=== PATIENT | male | born 1960 | race African-American/Black ===

== ENCOUNTER 2019-01-23 10:16 | Inpatient (IN) | payer OTHER ==
[2019-01-23 10:55] VITALS: BMI 34.2
--- NOTE | 2019-01-23 12:47 | HP ---
CIWA Score Nausea/Vomitin Muscle Tremors: 3 Anxiety: 3 Agitation: 3 Paroxysmal Sweats: 1-Minimal Palms Moist Orientation: 0-Oriented Tacttile Disturbances: 1-Very Mild Itch/Numbness Auditory Disturbances: 1-Very Mild Visual Disturbances: 0-None Headache: 2-Mild CIWA-Ar Total Score: 16 - Admission Criteria [facility]ASAS Guidelines: Admission for Medically Managed Detox: Requires at least one of the followin. CIWA greater than 12 2. Seizures within the past 24 hours 3. Delirium tremens within the past 24 hours 4. Hallucinations within the past 24 hours 5. Acute intervention needed for co occurring medical disorder 6. Acute intervention needed for co occurring psychiatric disorder 7. Severe withdrawal that cannot be handled at a lower level of care (continued vomiting, continued diarrhea, abnormal vital signs) requiring intravenous medication and/or fluids 8. Admission ROS S - [facility] Chief Complaint: i need help to stop drinking alcohol,cocaine Allergies/Adverse Reactions: Allergies Allergy/AdvReac Type Severity Reaction Status Date / Time amoxicillin Allergy Severe Difficulty Verified 01/23/19 10:47 Breathing History of Present Illness: this 58 years old male with alcohol and cocaine dependence,seeking detox, withdrawal symptom never been in detox before seen in [place] on sat 01/21/19 for pneumonia on levaquin 500 mgs po daily walking pneumonia type 2 dm since bilateral cataract surgery both eyes 2018 positive ppd bipolar disorder on med history of back surgery 2014 [facility] ambulation with cane bilateral knee replacement 2012.2018 right shoulder 2016 nicotine dependence 5 cigarette/day,does not need nicotine replacement lap gastric by pass 2010 asthma for detox plan to go to rehab - Ebola screening Have you traveled outside of the country in the last 21 days: No Have you had contact with anyone from an Ebola affected area: No Do you have a fever: No - Review of Systems Constitutional: Loss of Appetite, Malaise, Night Sweats, Changes in sleep, Weakness, Unintentional Wgt. Loss EENT: reports: Nose Congestion, Other (bilateral cataract surgery in 2018) Respiratory: reports: Productive cough, Other (asthma pneumonia left on levaquin 500 mgs po daily sine 01/21/19) Cardiac: reports: No Symptoms Reported GI: reports: Nausea, Poor Appetite, Abdominal cramping (history of lap gastric by pass) : reports: No Symptoms Reported Musculoskeletal: reports: Back Pain, Muscle Pain, Other (history of back sugery in 2014 history of bilearal knee replacement in 2011,2017) Integumentary: reports: Dryness Neuro: reports: Headache, Tremors Endocrine: reports: No Symptoms Reported, Other (type 2 dm) Hematology: reports: No Symptoms Reported Psychiatric: reports: No Sypmtoms Reported, Judgement Intact, Mood/Affect Appropiate, Orientated x3, other (bipolar disorder) Other Systems: Reviewed and Negative (ambulation with cane) Patient History - Patient Medical History Hx Anemia: No ( gastric bypass and not compliant with the suplemental vit B 12 ) Hx Asthma: Yes (on albuterol inhaler) Hx Chronic Obstructive Pulmonary Disease (COPD): No Hx Cancer: No Hx Cardiac Disorders: No Hx Congestive Heart Failure: No Hx Hypertension: Yes (on medication) Hx Hypercholesterolemia: No Hx Pacemaker: No HX Cerebrovascular Accident: No Hx Seizures: No Hx Dementia: No Hx Diabetes: Yes (no med) Hx Gastrointestinal Disorders: No (Gastric By pass) Hx Liver Disease: No Hx Genitourinary Disorders: No Hx Sexually Transmitted Disorders: No Hx Renal Disease (ESRD): No Hx Thyroid Disease: No Hx Human Immunodeficiency Virus (HIV): No (last 07/14 negative) Hx Hepatitis C: No Hx Depression: Yes Hx Suicide Attempt: No Hx Bipolar Disorder: Yes Hx Schizophrenia: No Other Medical History: no sucidal,no homicidal - Patient Surgical History Past Surgical History: Yes Hx Neurologic Surgery: No Hx Cataract Extraction: No Hx Cardiac Surgery: No Hx Lung Surgery: No Hx Breast Surgery: No Hx Breast Biopsy: No Hx Abdominal Surgery: Yes (Gastric Bypass 2010) Hx Appendectomy: No Hx Cholecystectomy: No Hx Genitourinary Surgery: No Hx Section: Yes (Lt Knee replacement, shoulder) Hx Orthopedic Surgery: No Other Surgical History: right sholder surgery,back surgry Anesthesia Reaction: No - PPD History Documented Results: Positive w/o proof Implanted On Prior [facility] Admission?: No PPD to be Administered?: No - Smoking Cessation Smoking history: Current every day smoker Have you smoked in the past 12 months: Yes Aproximately how many cigarettes per day: 0 Hx Chewing Tobacco Use: No Initiated information on smoking cessation: Yes 'Breaking Loose' booklet given: 01/23/19 - Substance & Tx. History Hx Alcohol Use: Yes Hx Substance Use: Yes Substance Use Type: Alcohol, Cocaine Hx Substance Use Treatment: Yes (rehab 05/02/15 to 05/17/15) - Substances abused Alcohol Substance route: Oral Frequency: Daily Amount used: 1 pt. jin Age of first use: 5 Date of last use: 01/22/19 Cocaine Substance route: Smoking Frequency: Daily Amount used: $50 Age of first use: 12 Date of last use: 01/22/19 Family Disease History - Family Disease History Family Disease History: Heart Disease: Sister, Respiratory: Sister Admission Physical Exam [facility] - Vital Signs Vital Signs: Vital Signs - 24 hr 01/23/19 10:50 Temperature 98.4 F Pulse Rate 73 Respiratory 18 Rate Blood Pressure 163/104 H - Physical General Appearance: Yes: Moderate Distress, Tremorous, Irritable, Sweating, Anxious HEENTM: Yes: Normocephalic, LUKE, Pharynx Normal, Other (s/p cataract sugery both) Respiratory: Yes: Lungs Clear, Normal Breath Sounds, No Respiratory Distress Neck: Yes: Within Normal Limits, Supple, Trachea in good position Breast: Yes: Within Normal Limits Cardiology: Yes: Within Normal Limits, Regular Rhythm, Regular Rate, S1, S2 Abdominal: Yes: Within Normal Limits, Normal Bowel Sounds, Flat, Soft, Surgical Scar Genitourinary: Yes: Within Normal Limits Back: Yes: Muscle Spasm Musculoskeletal: Yes: Other (scar right shoulder) Extremities: Yes: Within Normal Limits, Normal Range of Motion, Tremors, Other ( scar both knees) Neurological: Yes: courtroom reporter II-XII NML intact, Alert, Motor Strength 5/5 Integumentary: Yes: Dry Lymphatic: Yes: Within Normal Limits - Diagnostic (1) Alcohol dependence with uncomplicated withdrawal Current Visit: Yes Status: Acute (2) Cocaine dependence Current Visit: Yes Status: Acute (3) DM2 (diabetes mellitus, type 2) Current Visit: Yes Status: Acute (4) Nicotine dependence Current Visit: Yes Status: Acute (5) History of gastric bypass Current Visit: No Status: Chronic (6) Hypertension Current Visit: No Status: Chronic (7) Low back pain Current Visit: No Status: Chronic (8) History of back surgery Current Visit: Yes Status: Acute (9) History of back injury Current Visit: Yes Status: Acute (10) History of knee replacement Current Visit: Yes Status: Acute (11) Obesity Current Visit: No Status: Acute (12) Neuropathy Current Visit: Yes Status: Acute Cleared for Admission [facility] - Detox or Rehab S Level of Care: Medically Managed Detox Regimen/Protocol: Librium Breathalyzer - Breathalyzer Breathalyzer: 0 Urine Drug Screen - Test Device Lot number: [id number] Expiration date: 08/26/20 - Control Is test valid?: Yes - Results Drug screen NEGATIVE: No Urine drug screen results: THC-Marijuana, TITUS-Cocaine Inpatient Rehab Admission - Rehab Decision to Admit Inpatient rehab admission?: No
[2019-01-23] MEDS ORDERED: METHOCARBAMOL 500 MG TABLET PO PRN (13:06)
[2019-01-23] MEDS ORDERED: chlordiazePOXIDE HCL 25 MG CAPSULE PO PRN (13:06)
[2019-01-23] MEDS ORDERED: MAG HYDROX/AL HYDROX/SIMETH 30 ML UNIT-DOSE CUP PO PRN (13:06)
[2019-01-23] MEDS ORDERED: MAGNESIUM CITRATE 300 ML BOTTLE PO PRN (13:06)
[2019-01-23] MEDS ORDERED: MAGNESIUM HYDROX 2400MG/30ML ORAL SUSPENSION 30 ML CUP PO PRN (13:06)
[2019-01-23] MEDS ORDERED: IBUPROFEN 400 MG TABLET (FP) PO PRN (13:06)
[2019-01-23] MEDS ORDERED: MENTHOL/PHENOL 1 EACH UD MM PRN (13:06)
[2019-01-23] MEDS ORDERED: BISMUTH SUBSALICYLATE 524 MG/30 ML UD PO PRN (13:06)
[2019-01-23] MEDS ORDERED: amLODIPine BESYLATE 10 MG TABLET (FP) PO ONE (14:00)
[2019-01-23 16:17] LABS: HEMATOCRIT 36.3 % (35.4-49); HEMOGLOBIN 11.9 GM/dL (11.7-16.9); MCH 27.4 pg (25.7-33.7); MCHC 32.7 g/dl (32.0-35.9); MEAN CELL VOLUME 83.8 fl (80-96); MEAN PLT VOLUME 8.5 fl (7.5-11.1); PLATELET COUNT 325 K/MM3 (134-434); RBC 4.33 M/mm3 (4.00-5.60); RDW 19.5 % (11.9-15.9); WHITE BLOOD COUNT 5.4 K/mm3 (4.0-10.0)
[2019-01-23 16:18] LABS: PH,URINE 6.5 (5.0-8.0); URINE APPEARANCE CLEAR; URINE BILIRUBIN NEGATIVE (NEGATIVE); URINE COLOR YELLOW; URINE GLUCOSE (UA) NEGATIVE (NEGATIVE); URINE KETONE TRACE (NEGATIVE); URINE LEUK ESTERASE NEGATIVE (NEGATIVE); URINE NITRITE NEGATIVE (NEGATIVE); URINE PROTEIN NEGATIVE (NEGATIVE)
[2019-01-23 16:22] LABS: ALBUMIN 3.1 g/dl (3.4-5.0); ALK PHOS 92 U/L (45-117); ANION GAP 4 MMOL/L (8-16); BILIRUBIN,TOTAL 0.2 mg/dL (0.2-1); BLOOD UREA NITROGEN 10 mg/dL (7-18); CALCIUM 8.9 mg/dL (8.5-10.1); CHLORIDE 105 mmol/L (98-107); CO2 30 mmol/L (21-32); GLUCOSE,RANDOM 159 mg/dL (74-106); POTASSIUM 3.6 mmol/L (3.5-5.1); SGOT/AST 11 U/L (15-37); SGPT/ALT 17 U/L (13-61); SODIUM 139 mmol/L (136-145); TOT PROT 7.3 g/dl (6.4-8.2)
[2019-01-23] MEDS: chlordiazePOXIDE HCL 25 MG CAPSULE PO SCH ×2 (18:19→23:07)
[2019-01-23] MEDS: THIAMINE HCL 100 MG TABLET (FP) PO SCH (23:06)
[2019-01-23] MEDS: hydrOXYzine PAMOATE 25 MG CAPSULE (FP) PO PRN (23:06)
[2019-01-23] MEDS: MELATONIN 5 MG TABLETS PO PRN (23:07)
[2019-01-24] MEDS: chlordiazePOXIDE HCL 25 MG CAPSULE PO SCH ×4 (05:52→22:37)
[2019-01-24] MEDS: LEVOFLOXACIN 250 MG PO SCH (06:27)
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
[2019-01-24] MEDS: PRENATAL VITAMINS W/ FOLIC ACID TABLET (FP) PO SCH (11:39)
[2019-01-24] MEDS: amLODIPine BESYLATE 10 MG TABLET (FP) PO SCH (11:39)
[2019-01-24] MEDS: hydrOXYzine PAMOATE 25 MG CAPSULE (FP) PO PRN (11:40)
--- NOTE | 2019-01-24 14:13 | PN ---
S CIWA - CIWA Score Nausea/Vomitin Muscle Tremors: 2 Anxiety: 3 Agitation: 1-Slight > Activity Paroxysmal Sweats: No Perspiration Orientation: 0-Oriented Tacttile Disturbances: 0-None Auditory Disturbances: 3-Moderate Harsh/Frighten Visual Disturbances: 2-Mild Sensitivity Headache: 0-None Present CIWA-Ar Total Score: 13 [facility] Progress Note (SOAP) Subjective: Anxious, Tremors, Nausea, Diarrhea. Objective: PATIENT A & O X 3, OBSERVED AMBULATING ON UNIT UNASSISTED WITH ASSISTANCE OF A CANE. IN NO ACUTE DISTRESS. 01/24/19 14:11 Vital Signs Temperature 98.1 F 01/24/19 13:20 Pulse Rate 92 H 01/24/19 13:20 Respiratory Rate 18 01/24/19 13:20 Blood Pressure 164/79 01/24/19 13:20 O2 Sat by Pulse Oximetry (%) Laboratory Tests 01/23/19 01/23/19 01/23/19 12:41 12:41 12:41 WBC 5.4 RBC 4.33 Hgb 11.9 Hct 36.3 MCV 83.8 MCH 27.4 MCHC 32.7 RDW 19.5 H Plt Count 325 D MPV 8.5 Sodium 139 Potassium 3.6 Chloride 105 Carbon Dioxide 30 Anion Gap 4 L BUN 10 Creatinine 1.0 Creat Clearance w eGFR 76.48 POC Glucometer Random Glucose 159 H Calcium 8.9 Total Bilirubin 0.2 AST 11 L ALT 17 Alkaline Phosphatase 92 Total Protein 7.3 Albumin 3.1 L Urine Color Urine Appearance Urine pH Ur Specific [place] Urine Protein Urine Glucose (UA) Urine Ketones Urine Blood Urine Nitrite Urine Bilirubin Urine Urobilinogen Ur Leukocyte Esterase RPR Titer Nonreactive 01/23/19 01/23/19 01/24/19 14:50 16:40 05:56 WBC RBC Hgb Hct MCV MCH MCHC RDW Plt Count MPV Sodium Potassium Chloride Carbon Dioxide Anion Gap BUN Creatinine Creat Clearance w eGFR POC Glucometer 123 179 Random Glucose Calcium Total Bilirubin AST ALT Alkaline Phosphatase Total Protein Albumin Urine Color Yellow Urine Appearance Clear Urine pH 6.5 D Ur Specific [place] 1.025 Urine Protein Negative Urine Glucose (UA) Negative Urine Ketones Trace H Urine Blood Negative Urine Nitrite Negative Urine Bilirubin Negative Urine Urobilinogen 1.0 Ur Leukocyte Esterase Negative RPR Titer LABS NOTED. Assessment: 01/24/19 14:12 WITHDRAWAL SYMPTOMS. HYPERTENSION. Plan: CONTINUE DETOX. INCREASE DAILY PO FLUID INTAKE. PRN PEPTO-BISMOL PO FOR DIARRHEA.
[2019-01-24] MEDS ORDERED: ONDANSETRON *ODT* 4 MG TABLET SL PRN (17:13)
--- NOTE | 2019-01-24 17:20 | PN ---
[facility] Progress Note Note: Vital Signs Temperature 99.9 F H 01/24/19 17:00 Pulse Rate 92 H 01/24/19 17:00 Respiratory Rate 18 01/24/19 17:00 Blood Pressure 119/87 01/24/19 17:00 O2 Sat by Pulse Oximetry (%) Laboratory Last Values WBC 5.4 K/mm3 (4.0-10.0) 01/23/19 12:41 RBC 4.33 M/mm3 (4.00-5.60) 01/23/19 12:41 Hgb 11.9 GM/dL (11.7-16.9) 01/23/19 12:41 Hct 36.3 % (35.4-49) 01/23/19 12:41 MCV 83.8 fl (80-96) 01/23/19 12:41 MCH 27.4 pg (25.7-33.7) 01/23/19 12:41 MCHC 32.7 g/dl (32.0-35.9) 01/23/19 12:41 RDW 19.5 % (11.9-15.9) H 01/23/19 12:41 Plt Count 325 K/MM3 (134-434) D 01/23/19 12:41 MPV 8.5 fl (7.5-11.1) 01/23/19 12:41 Sodium 139 mmol/L (136-145) 01/23/19 12:41 Potassium 3.6 mmol/L (3.5-5.1) 01/23/19 12:41 Chloride 105 mmol/L (98-107) 01/23/19 12:41 Carbon Dioxide 30 mmol/L (21-32) 01/23/19 12:41 Anion Gap 4 MMOL/L (8-16) L 01/23/19 12:41 BUN 10 mg/dL (7-18) 01/23/19 12:41 Creatinine 1.0 mg/dL (0.55-1.3) 01/23/19 12:41 Creat Clearance w eGFR 76.48 (>60) 01/23/19 12:41 POC Glucometer 131 UNITS (80-120) 01/24/19 16:31 Random Glucose 159 mg/dL (74-106) H 01/23/19 12:41 Calcium 8.9 mg/dL (8.5-10.1) 01/23/19 12:41 Total Bilirubin 0.2 mg/dL (0.2-1) 01/23/19 12:41 AST 11 U/L (15-37) L 01/23/19 12:41 ALT 17 U/L (13-61) 01/23/19 12:41 Alkaline Phosphatase 92 U/L (45-117) 01/23/19 12:41 Total Protein 7.3 g/dl (6.4-8.2) 01/23/19 12:41 Albumin 3.1 g/dl (3.4-5.0) L 01/23/19 12:41 Urine Color Yellow 01/23/19 14:50 Urine Appearance Clear 01/23/19 14:50 Urine pH 6.5 (5.0-8.0) D 01/23/19 14:50 Ur Specific [place] 1.025 (1.010-1.035) 01/23/19 14:50 Urine Protein Negative (NEGATIVE) 01/23/19 14:50 Urine Glucose (UA) Negative (NEGATIVE) 01/23/19 14:50 Urine Ketones Trace (NEGATIVE) H 01/23/19 14:50 Urine Blood Negative (NEGATIVE) 01/23/19 14:50 Urine Nitrite Negative (NEGATIVE) 01/23/19 14:50 Urine Bilirubin Negative (NEGATIVE) 01/23/19 14:50 Urine Urobilinogen 1.0 mg/dL (0.2-1.0) 01/23/19 14:50 Ur Leukocyte Esterase Negative (NEGATIVE) 01/23/19 14:50 RPR Titer Nonreactive (NONREACTIVE) 01/23/19 12:41 c/o of nausea and vomiting zofran prn fluids as tolerated continue to monitor
[2019-01-24] MEDS: THIAMINE HCL 100 MG TABLET (FP) PO SCH (22:37)
[2019-01-25] MEDS: LEVOFLOXACIN 250 MG PO SCH (05:21)
[2019-01-25] MEDS: chlordiazePOXIDE HCL 25 MG CAPSULE PO SCH ×2 (05:21→10:34)
[2019-01-25] MEDS: PRENATAL VITAMINS W/ FOLIC ACID TABLET (FP) PO SCH (10:35)
[2019-01-25] MEDS: amLODIPine BESYLATE 10 MG TABLET (FP) PO SCH (10:35)
[2019-01-25] MEDS ORDERED: chlordiazePOXIDE HCL 10 MG CAPSULE PO PRN ×2 (12:28→17:00)
--- NOTE | 2019-01-25 12:57 | PN ---
S CIWA - CIWA Score Nausea/Vomitin-No Nausea/No Vomiting Muscle Tremors: None Anxiety: 2 Agitation: 1-Slight > Activity Paroxysmal Sweats: 2 Orientation: 0-Oriented Tacttile Disturbances: 1-Very Mild Itch/Numbness Auditory Disturbances: 2-Mild Harshness/Frighten Visual Disturbances: 1-Very Mild Sensitivity Headache: 0-None Present CIWA-Ar Total Score: 9 BHS Progress Note (SOAP) Subjective: Sweating, Anxious, Diarrhea (Patient Reports that severity of Diarrhea has improved significantly since yesterday.) Objective: PATIENT A & O X 3, OBSERVED AMBULATING ON UNIT UNASSISTED WITH ASSISTANCE OF A CANE. IN NO ACUTE DISTRESS. 01/25/19 12:54 Vital Signs Temperature 98.2 F 01/25/19 09:01 Pulse Rate 90 01/25/19 09:01 Respiratory Rate 18 01/25/19 09:01 Blood Pressure 140/84 01/25/19 09:01 O2 Sat by Pulse Oximetry (%) Laboratory Tests 01/23/19 01/23/19 01/23/19 12:41 12:41 12:41 WBC 5.4 RBC 4.33 Hgb 11.9 Hct 36.3 MCV 83.8 MCH 27.4 MCHC 32.7 RDW 19.5 H Plt Count 325 D MPV 8.5 Sodium 139 Potassium 3.6 Chloride 105 Carbon Dioxide 30 Anion Gap 4 L BUN 10 Creatinine 1.0 Creat Clearance w eGFR 76.48 POC Glucometer Random Glucose 159 H Calcium 8.9 Total Bilirubin 0.2 AST 11 L ALT 17 Alkaline Phosphatase 92 Total Protein 7.3 Albumin 3.1 L Urine Color Urine Appearance Urine pH Ur Specific [place] Urine Protein Urine Glucose (UA) Urine Ketones Urine Blood Urine Nitrite Urine Bilirubin Urine Urobilinogen Ur Leukocyte Esterase RPR Titer Nonreactive 01/23/19 01/23/19 01/24/19 14:50 16:40 05:56 WBC RBC Hgb Hct MCV MCH MCHC RDW Plt Count MPV Sodium Potassium Chloride Carbon Dioxide Anion Gap BUN Creatinine Creat Clearance w eGFR POC Glucometer 123 179 Random Glucose Calcium Total Bilirubin AST ALT Alkaline Phosphatase Total Protein Albumin Urine Color Yellow Urine Appearance Clear Urine pH 6.5 D Ur Specific [place] 1.025 Urine Protein Negative Urine Glucose (UA) Negative Urine Ketones Trace H Urine Blood Negative Urine Nitrite Negative Urine Bilirubin Negative Urine Urobilinogen 1.0 Ur Leukocyte Esterase Negative RPR Titer 01/24/19 01/25/19 16:31 05:26 WBC RBC Hgb Hct MCV MCH MCHC RDW Plt Count MPV Sodium Potassium Chloride Carbon Dioxide Anion Gap BUN Creatinine Creat Clearance w eGFR POC Glucometer 131 107 Random Glucose Calcium Total Bilirubin AST ALT Alkaline Phosphatase Total Protein Albumin Urine Color Urine Appearance Urine pH Ur Specific [place] Urine Protein Urine Glucose (UA) Urine Ketones Urine Blood Urine Nitrite Urine Bilirubin Urine Urobilinogen Ur Leukocyte Esterase RPR Titer LABS NOTED. Assessment: 01/25/19 12:54 WITHDRAWAL SYMPTOMS. HYPERTENSION. 01/25/19 12:57 Plan: CONTINUE DETOX. INCREASE DAILY PO FLUID INTAKE. CONTINUE TO MONITOR BP.
--- NOTE | 2019-01-25 14:40 | PN ---
S Progress Note Note: START METOPROLOL TARTRATE, 25 MG PO DAILY (PATIENT REPORTS THIS MEDICATION PREVIOUSLY PRESCRIBED HOME MEDICATION) FOR ELEVATED BP DESPITE TREATMENT. Isaac MCGILL NP
[2019-01-25] MEDS: METOPROLOL TARTRATE 25 MG TABLET (FP) PO SCH (15:25)
[2019-01-25] MEDS: chlordiazePOXIDE HCL 10 MG CAPSULE PO SCH ×2 (17:30→22:27)
[2019-01-25] MEDS: MELATONIN 5 MG TABLETS PO PRN (22:26)
[2019-01-25] MEDS: THIAMINE HCL 100 MG TABLET (FP) PO SCH (22:27)
[2019-01-25] MEDS: hydrOXYzine PAMOATE 25 MG CAPSULE (FP) PO PRN (22:27)
[2019-01-26] MEDS ORDERED: chlordiazePOXIDE HCL 10 MG CAPSULE PO SCH ×2 (05:00→17:00)
[2019-01-26] MEDS: LEVOFLOXACIN 250 MG PO SCH (05:50)
[2019-01-26] MEDS: METOPROLOL TARTRATE 25 MG TABLET (FP) PO SCH (10:15)
[2019-01-26] MEDS: PRENATAL VITAMINS W/ FOLIC ACID TABLET (FP) PO SCH (10:15)
[2019-01-26] MEDS: amLODIPine BESYLATE 10 MG TABLET (FP) PO SCH (10:15)
[2019-01-26] MEDS: chlordiazePOXIDE 5 MG CAPSULE PO SCH ×3 (10:16→17:52)
--- NOTE | 2019-01-26 13:03 | PN ---
[facility] CIWA - CIWA Score Nausea/Vomitin-No Nausea/No Vomiting Muscle Tremors: 1-None Visible, but [place] Anxiety: 0-No Anxiety, at Ease Agitation: 1-Slight > Activity Paroxysmal Sweats: 3 Orientation: 0-Oriented Tacttile Disturbances: 1-Very Mild Itch/Numbness Auditory Disturbances: 0-None Visual Disturbances: 1-Very Mild Sensitivity Headache: 0-None Present CIWA-Ar Total Score: 7 BHS Progress Note (SOAP) Subjective: Sweating, Diarrhea. Patient Reports That Withdrawal / Detox Symptoms are minimal in degree at this time. Objective: PATIENT A & O X 3, OBSERVED AMBULATING ON UNIT WITH ASSISTANCE OF A CANE. IN NO ACUTE DISTRESS. 01/26/19 13:05 Vital Signs Temperature 97.7 F 01/26/19 09:47 Pulse Rate 102 H 01/26/19 09:47 Respiratory Rate 19 01/26/19 09:47 Blood Pressure 171/90 H 01/26/19 09:47 O2 Sat by Pulse Oximetry (%) Laboratory Tests 01/23/19 01/23/19 01/23/19 12:32 12:41 12:41 WBC 5.4 RBC 4.33 Hgb 11.9 Hct 36.3 MCV 83.8 MCH 27.4 MCHC 32.7 RDW 19.5 H Plt Count 325 D MPV 8.5 Sodium 139 Potassium 3.6 Chloride 105 Carbon Dioxide 30 Anion Gap 4 L BUN 10 Creatinine 1.0 Creat Clearance w eGFR 76.48 POC Glucometer 166 Random Glucose 159 H Calcium 8.9 Total Bilirubin 0.2 AST 11 L ALT 17 Alkaline Phosphatase 92 Total Protein 7.3 Albumin 3.1 L Urine Color Urine Appearance Urine pH Ur Specific [place] Urine Protein Urine Glucose (UA) Urine Ketones Urine Blood Urine Nitrite Urine Bilirubin Urine Urobilinogen Ur Leukocyte Esterase RPR Titer 01/23/19 01/23/19 01/23/19 12:41 14:50 16:40 WBC RBC Hgb Hct MCV MCH MCHC RDW Plt Count MPV Sodium Potassium Chloride Carbon Dioxide Anion Gap BUN Creatinine Creat Clearance w eGFR POC Glucometer 123 Random Glucose Calcium Total Bilirubin AST ALT Alkaline Phosphatase Total Protein Albumin Urine Color Yellow Urine Appearance Clear Urine pH 6.5 D Ur Specific [place] 1.025 Urine Protein Negative Urine Glucose (UA) Negative Urine Ketones Trace H Urine Blood Negative Urine Nitrite Negative Urine Bilirubin Negative Urine Urobilinogen 1.0 Ur Leukocyte Esterase Negative RPR Titer Nonreactive 01/24/19 01/24/19 01/25/19 05:56 16:31 05:26 WBC RBC Hgb Hct MCV MCH MCHC RDW Plt Count MPV Sodium Potassium Chloride Carbon Dioxide Anion Gap BUN Creatinine Creat Clearance w eGFR POC Glucometer 179 131 107 Random Glucose Calcium Total Bilirubin AST ALT Alkaline Phosphatase Total Protein Albumin Urine Color Urine Appearance Urine pH Ur Specific [place] Urine Protein Urine Glucose (UA) Urine Ketones Urine Blood Urine Nitrite Urine Bilirubin Urine Urobilinogen Ur Leukocyte Esterase RPR Titer 01/25/19 01/26/19 16:21 05:22 WBC RBC Hgb Hct MCV MCH MCHC RDW Plt Count MPV Sodium Potassium Chloride Carbon Dioxide Anion Gap BUN Creatinine Creat Clearance w eGFR POC Glucometer 146 107 Random Glucose Calcium Total Bilirubin AST ALT Alkaline Phosphatase Total Protein Albumin Urine Color Urine Appearance Urine pH Ur Specific [place] Urine Protein Urine Glucose (UA) Urine Ketones Urine Blood Urine Nitrite Urine Bilirubin Urine Urobilinogen Ur Leukocyte Esterase RPR Titer LABS NOTED. Assessment: 01/26/19 13:06 WITHDRAWAL SYMPTOMS. HYPERTENSION. 01/26/19 13:08 Plan: CONTINUE DETOX. INCREASE DAILY PO FLUID / WATER INTAKE. PRN PEPTO-BISMOL PO FOR DIARRHEA. CONTINUE TO MONITOR BP. PATIENT SCHEDULED FOR D/C TOMORROW.
[2019-01-26] MEDS: MELATONIN 5 MG TABLETS PO PRN (22:17)
[2019-01-26] MEDS: THIAMINE HCL 100 MG TABLET (FP) PO SCH (22:17)
[2019-01-27] MEDS: LEVOFLOXACIN 250 MG PO SCH (06:36)
[2019-01-27 09:24] VITALS: BP 156/81; PULSE 92; TEMP 98.1
[2019-01-27] MEDS: PRENATAL VITAMINS W/ FOLIC ACID TABLET (FP) PO SCH (10:12)
[2019-01-27] MEDS: METOPROLOL TARTRATE 25 MG TABLET (FP) PO SCH (10:12)
[2019-01-27] MEDS: amLODIPine BESYLATE 10 MG TABLET (FP) PO SCH (10:12)
--- NOTE | 2019-01-27 18:05 | DS ---
[facility] Detox Discharge Summary Admission Date: 01/23/19 Discharge Date: 01/27/19 - History Present History: Alcohol Dependence, Cocaine Dependence Additional Comments: PATIENT GOING TO [facility] ([place], [place]) FOR AFTERCARE. PATIENT ADVISED TO FOLLOW-UP WITH IMMIGRATION CASE WORKER AFTER DISCHARGE FORM REHAB FOR GENERAL MEDICAL ASSESSMENT ADN FOR HISTORY OF WALKING PNEUMONIA, OF TYPE II DM, AND FOR HISTORY OF HTN. MEDICATION (LEVAQUIN) PRESCRIBED TOP PATIENT PRIOR TO ADMISSION TO DETOX UNIT AND CONTINUED WHILE ADMITTED FOR DETOX COMPLETED AT TIME OF DISCHARGE FROM DETOX UNIT. PATIENT WAS DISCHARGED FORM DETOX UNIT IN STABLE MEDICAL CONDITION. Pertinent Past History: Type II DM, Nicotine Dependence, History Of Gastric Bypass, HTN, History Of Lower Back Pain, History Of Back Surgery, History Of Back Injury, History Of Bilateral Knee Replacement, Neuropathy, Pneumonia (Walking), History Of Cataract Surgery In Bilateral Eyes, History Of Positive PPD, Ambulates with Cane , Bipolar Disorder, Asthma, History Of shoulder surgery, Depression. - Physical Exam Results Vital Signs: Vital Signs Temperature 98.1 F 01/27/19 09:24 Pulse Rate 92 H 01/27/19 09:24 Respiratory Rate 20 01/27/19 09:24 Blood Pressure 156/81 01/27/19 09:24 O2 Sat by Pulse Oximetry (%) Pertinent Admission Physical Exam Findings: WITHDRAWAL SYMPTOMS. Laboratory Tests 01/23/19 01/23/19 01/23/19 12:32 12:41 12:41 WBC 5.4 RBC 4.33 Hgb 11.9 Hct 36.3 MCV 83.8 MCH 27.4 MCHC 32.7 RDW 19.5 H Plt Count 325 D MPV 8.5 Sodium 139 Potassium 3.6 Chloride 105 Carbon Dioxide 30 Anion Gap 4 L BUN 10 Creatinine 1.0 Creat Clearance w eGFR 76.48 POC Glucometer 166 Random Glucose 159 H Calcium 8.9 Total Bilirubin 0.2 AST 11 L ALT 17 Alkaline Phosphatase 92 Total Protein 7.3 Albumin 3.1 L Urine Color Urine Appearance Urine pH Ur Specific [place] Urine Protein Urine Glucose (UA) Urine Ketones Urine Blood Urine Nitrite Urine Bilirubin Urine Urobilinogen Ur Leukocyte Esterase RPR Titer 01/23/19 01/23/19 01/23/19 12:41 14:50 16:40 WBC RBC Hgb Hct MCV MCH MCHC RDW Plt Count MPV Sodium Potassium Chloride Carbon Dioxide Anion Gap BUN Creatinine Creat Clearance w eGFR POC Glucometer 123 Random Glucose Calcium Total Bilirubin AST ALT Alkaline Phosphatase Total Protein Albumin Urine Color Yellow Urine Appearance Clear Urine pH 6.5 D Ur Specific [place] 1.025 Urine Protein Negative Urine Glucose (UA) Negative Urine Ketones Trace H Urine Blood Negative Urine Nitrite Negative Urine Bilirubin Negative Urine Urobilinogen 1.0 Ur Leukocyte Esterase Negative RPR Titer Nonreactive 01/24/19 01/24/19 01/25/19 05:56 16:31 05:26 WBC RBC Hgb Hct MCV MCH MCHC RDW Plt Count MPV Sodium Potassium Chloride Carbon Dioxide Anion Gap BUN Creatinine Creat Clearance w eGFR POC Glucometer 179 131 107 Random Glucose Calcium Total Bilirubin AST ALT Alkaline Phosphatase Total Protein Albumin Urine Color Urine Appearance Urine pH Ur Specific [place] Urine Protein Urine Glucose (UA) Urine Ketones Urine Blood Urine Nitrite Urine Bilirubin Urine Urobilinogen Ur Leukocyte Esterase RPR Titer 01/25/19 01/26/19 01/27/19 16:21 05:22 05:54 WBC RBC Hgb Hct MCV MCH MCHC RDW Plt Count MPV Sodium Potassium Chloride Carbon Dioxide Anion Gap BUN Creatinine Creat Clearance w eGFR POC Glucometer 146 107 105 Random Glucose Calcium Total Bilirubin AST ALT Alkaline Phosphatase Total Protein Albumin Urine Color Urine Appearance Urine pH Ur Specific [place] Urine Protein Urine Glucose (UA) Urine Ketones Urine Blood Urine Nitrite Urine Bilirubin Urine Urobilinogen Ur Leukocyte Esterase RPR Titer LABS NOTED. - Treatment Hospital Course: Detox Protocol Followed, Detoxed Safely, Responded well, Discharged Condition Good, Rehab Referral Accepted Patient has Accepted a Rehab Referral to: [facility] ([place], [place]) . - Medication Discharge Medications: Ambulatory Orders metFORMIN HCL [Glucophage -] 1,000 mg PO MONTHLY 01/23/19 Amlodipine Besylate [Norvasc -] 10 mg PO DAILY 30 Days #30 tablet 01/27/19 Metoprolol Tartrate [Lopressor -] 25 mg PO DAILY 30 Days #30 tablet 01/27/19 - Diagnosis (1) Alcohol dependence with uncomplicated withdrawal Status: Acute (2) Cocaine dependence Status: Acute Qualifiers: Substance use status: in withdrawal Qualified Code(s): F14.23 - Cocaine dependence with withdrawal (3) History of back surgery Status: Acute (4) Nicotine dependence Status: Acute Qualifiers: Nicotine product type: cigarettes Substance use status: uncomplicated Qualified Code(s): F17.210 - Nicotine dependence, cigarettes, uncomplicated (5) Obesity Status: Acute Qualifiers: Obesity type: unspecified obesity type Obesity classification: adult class 1 (BMI 30 - 34.9) Serious obesity comorbidity presence: unspecified whether serious comorbidity present Body mass index: BMI 34.0-34.9 Qualified Code(s) : E66.9 - Obesity, unspecified; Z68.34 - Body mass index (BMI) 34.0-34.9, adult (6) DM2 (diabetes mellitus, type 2) Status: Chronic Qualifiers: Diabetes mellitus longwall machine operator helper insulin use: without longwall machine operator helper use Diabetes mellitus complication status: with unspecified complications Qualified Code(s) : E11.8 - Type 2 diabetes mellitus with unspecified complications (7) History of gastric bypass Status: Chronic (8) Hypertension Status: Chronic Qualifiers: Hypertension type: unspecified Qualified Code(s): I10 - Essential (primary ) hypertension (9) Low back pain Status: Chronic Qualifiers: Chronicity: unspecified Back pain laterality: unspecified Sciatica presence: unspecified whether sciatica present Qualified Code(s): M54.5 - Low back pain (10) Neuropathy Status: Chronic (11) History of back injury Status: Resolved (12) History of knee replacement Status: Resolved Qualifiers: Laterality: bilateral Qualified Code(s): Z96.653 - Presence of artificial knee joint, bilateral (13) Substance induced mood disorder Status: Acute (14) Substance-induced sleep disorder Status: Acute (15) Schizoaffective disorder Status: Chronic Qualifiers: Schizoaffective disorder type: unspecified Qualified Code(s): F25.9 - Schizoaffective disorder, unspecified - AMA Did Patient Leave Against Medical Advice: No
== END 2019-01-27 12:22 | disposition home or self-care (01) | DRG 774 ==
LOC: YASAS 10:16 → Y6N 13:12
PROVIDERS: ADMIT Surgery; ATTEND Surgery
PROC: HZ2ZZZZ Detoxification Services for Substance Abuse Treatment (ICD-10-PCS; principal; 2019-01-23)
DX: F10.230 Alcohol dependence with withdrawal, uncomplicated (principal); F14.20 Cocaine dependence, uncomplicated; F17.210 Nicotine dependence, cigarettes, uncomplicated; F19.24 Other psychoactive substance dependence with psychoactive substance-induced mood disorder; F19.282 Other psychoactive substance dependence with psychoactive substance-induced sleep disorder; F25.9 Schizoaffective disorder, unspecified; F31.9 Bipolar disorder, unspecified; G62.9 Polyneuropathy, unspecified; E11.9 Type 2 diabetes mellitus without complications; J45.909 Unspecified asthma, uncomplicated; I10 Essential (primary) hypertension; Z98.84 Bariatric surgery status; Z96.653 Presence of artificial knee joint, bilateral; R26.89 Other abnormalities of gait and mobility; Z99.89 Dependence on other enabling machines and devices; Z88.0 Allergy status to penicillin
CPT/HCPCS: 36415; 71046-TC-FY; 80053; 81003; 82962; 85027; 86593; Q0162

== ENCOUNTER 2021-06-09 13:18 | Inpatient (IN) | payer OTHER ==
[2021-06-09 14:40] VITALS: BMI 31.4
[2021-06-09] MEDS ORDERED: MAGNESIUM CITRATE 300 ML BOTTLE PO PRN (17:36)
[2021-06-09] MEDS ORDERED: ACETAMINOPHEN 325 MG TABLET (FP) PO PRN ×2 (17:36)
[2021-06-09] MEDS ORDERED: MENTHOL/PHENOL 1 EACH UD MM PRN (17:36)
[2021-06-09] MEDS ORDERED: IBUPROFEN 400 MG TABLET (FP) PO PRN (17:36)
[2021-06-09] MEDS ORDERED: MAGNESIUM HYDROX 2400MG/30ML ORAL SUSPENSION 30 ML CUP PO PRN (17:36)
[2021-06-09] MEDS ORDERED: BISMUTH SUBSALICYLATE 524 MG/30 ML PO PRN (17:36)
[2021-06-09] MEDS ORDERED: MAG HYDROX/AL HYDROX/SIMETH 30 ML UNIT-DOSE CUP PO PRN (17:36)
[2021-06-09] MEDS ORDERED: NICOTINE 10 MG CARTRIDGE (INHALER) IH PRN (17:36)
[2021-06-09] MEDS ORDERED: ONDANSETRON *ODT* 4 MG TABLET SL PRN (17:36)
[2021-06-09] MEDS: METOPROLOL TARTRATE 25 MG TABLET (FP) PO SCH (21:03)
[2021-06-09] MEDS ORDERED: methaDONE HCL 10 MG TABLET (FOR DETOX USE ONLY) PO ONE (23:00)
[2021-06-09] MEDS: THIAMINE HCL 100 MG TABLET (FP) PO SCH (23:26)
[2021-06-09] MEDS: MELATONIN 5 MG TABLETS PO SCH (23:28)
[2021-06-10] MEDS ORDERED: cloNIDine HCL 0.1 MG TABLET PO ONE (07:36)
[2021-06-10] MEDS ORDERED: methaDONE HCL 10 MG TABLET (FOR DETOX USE ONLY) ONE (08:26)
[2021-06-10] MEDS: PRENATAL VITAMINS W/ FOLIC ACID TABLET (FP) PO SCH (10:38)
[2021-06-10] MEDS: METOPROLOL TARTRATE 25 MG TABLET (FP) PO SCH (10:38)
[2021-06-10 13:10] LABS: ALBUMIN 3.3 g/dl (3.4-5.0); CALCIUM 8.8 mg/dL (8.5-10.1)
[2021-06-10 13:11] LABS: HEMATOCRIT 35.5 % (35.4-49); HEMOGLOBIN 11.7 GM/dL (11.7-16.9); MEAN PLT VOLUME 7.9 fl (7.5-11.1); PLATELET COUNT 362 10^3/uL (134-434); RDW 18.8 % (11.9-15.9); WHITE BLOOD COUNT 10.6 K/mm3 (4.0-10.0)
[2021-06-10 13:14] LABS: BLOOD UREA NITROGEN 9.4 mg/dL (7-18)
[2021-06-10 13:15] LABS: BILIRUBIN,TOTAL 0.5 mg/dL (0.2-1); TOT PROT 7.6 g/dl (6.4-8.2)
[2021-06-10] MEDS: cloNIDine HCL 0.1 MG TABLET PO PRN (14:02)
[2021-06-10] MEDS: amLODIPine BESYLATE 10 MG TABLET (FP) PO SCH (14:02)
[2021-06-10] MEDS: MELATONIN 5 MG TABLETS PO SCH (23:31)
[2021-06-10] MEDS: THIAMINE HCL 100 MG TABLET (FP) PO SCH (23:32)
[2021-06-11] MEDS: metFORMIN HCL 500 MG TABLET (FP) PO SCH (06:07)
[2021-06-11] MEDS: hydrOXYzine PAMOATE 25 MG CAPSULE (FP) PO PRN ×2 (06:08→10:18)
[2021-06-11] MEDS: cloNIDine HCL 0.1 MG TABLET PO PRN (07:58)
[2021-06-11] MEDS ORDERED: methaDONE HCL 10 MG TABLET (FOR DETOX USE ONLY) PO ONE (10:00)
[2021-06-11] MEDS: METOPROLOL TARTRATE 25 MG TABLET (FP) PO SCH (10:18)
[2021-06-11] MEDS: PRENATAL VITAMINS W/ FOLIC ACID TABLET (FP) PO SCH (10:18)
[2021-06-11] MEDS: amLODIPine BESYLATE 10 MG TABLET (FP) PO SCH (10:18)
[2021-06-11] MEDS: MELATONIN 5 MG TABLETS PO SCH (22:52)
[2021-06-11] MEDS: THIAMINE HCL 100 MG TABLET (FP) PO SCH (22:52)
[2021-06-12] MEDS: cloNIDine HCL 0.1 MG TABLET PO PRN (05:45)
[2021-06-12] MEDS: hydrOXYzine PAMOATE 25 MG CAPSULE (FP) PO PRN ×2 (05:45→10:08)
[2021-06-12] MEDS: metFORMIN HCL 500 MG TABLET (FP) PO SCH (06:21)
[2021-06-12] MEDS ORDERED: methaDONE HCL 10 MG TABLET (FOR DETOX USE ONLY) ONE (09:50)
[2021-06-12] MEDS: PRENATAL VITAMINS W/ FOLIC ACID TABLET (FP) PO SCH (10:08)
[2021-06-12] MEDS: METOPROLOL TARTRATE 25 MG TABLET (FP) PO SCH (10:08)
[2021-06-12] MEDS: amLODIPine BESYLATE 10 MG TABLET (FP) PO SCH (10:08)
[2021-06-12] MEDS: MELATONIN 5 MG TABLETS PO SCH (21:10)
[2021-06-12] MEDS: THIAMINE HCL 100 MG TABLET (FP) PO SCH (21:10)
[2021-06-13] MEDS: metFORMIN HCL 500 MG TABLET (FP) PO SCH (07:18)
[2021-06-13] MEDS ORDERED: methaDONE HCL 10 MG TABLET (FOR DETOX USE ONLY) PO ONE (10:00)
[2021-06-13] MEDS: METOPROLOL TARTRATE 25 MG TABLET (FP) PO SCH (10:11)
[2021-06-13] MEDS: amLODIPine BESYLATE 10 MG TABLET (FP) PO SCH (10:11)
[2021-06-13] MEDS: PRENATAL VITAMINS W/ FOLIC ACID TABLET (FP) PO SCH (10:11)
[2021-06-13] MEDS: cloNIDine HCL 0.1 MG TABLET PO PRN (10:11)
[2021-06-13 14:06] VITALS: BP 116/66; PULSE 78; TEMP 97.6
== END 2021-06-13 15:40 | disposition other institution (70) | DRG 773 ==
LOC: YASAS 13:18 → Y3N 20:08
PROVIDERS: ADMIT Allergy & Immunology; ATTEND Allergy & Immunology
PROC: HZ2ZZZZ Detoxification Services for Substance Abuse Treatment (ICD-10-PCS; principal; 2021-06-09)
DX: F11.23 Opioid dependence with withdrawal (principal); F14.20 Cocaine dependence, uncomplicated; F16.10 Hallucinogen abuse, uncomplicated; F17.210 Nicotine dependence, cigarettes, uncomplicated; I10 Essential (primary) hypertension; E11.9 Type 2 diabetes mellitus without complications; Z79.84 Long term (current) use of oral hypoglycemic drugs; M54.5 Low back pain; Z96.653 Presence of artificial knee joint, bilateral; Z98.84 Bariatric surgery status; Z98.890 Other specified postprocedural states; Z88.1 Allergy status to other antibiotic agents
CPT/HCPCS: 36415; 71045-TC-FY; 80053; 82962; 85027; 86780; C9803; J0735; U0003; U0005

== ENCOUNTER 2021-06-13 15:42 | Inpatient (IN) | payer OTHER ==
[2021-06-13] MEDS ORDERED: P-EPHED 60MG/TRIPROLIDI 2.5MG TABLET PO PRN (16:12)
[2021-06-13] MEDS ORDERED: ACETAMINOPHEN 325 MG TABLET (FP) PO PRN (16:12)
[2021-06-13] MEDS ORDERED: MAGNESIUM HYDROX 2400MG/30ML ORAL SUSPENSION 30 ML CUP PO PRN (16:12)
[2021-06-13] MEDS ORDERED: MENTHOL/PHENOL 1 EACH UD MM PRN (16:12)
[2021-06-13] MEDS ORDERED: MAGNESIUM CITRATE 300 ML BOTTLE PO PRN (16:12)
[2021-06-13] MEDS ORDERED: guaiFENesin 200 MG/10 ML 10 ML UNIT-DOSE CUPS PO PRN (16:12)
[2021-06-13] MEDS ORDERED: IBUPROFEN 400 MG TABLET (FP) PO PRN (16:12)
[2021-06-13] MEDS ORDERED: MAG HYDROX/AL HYDROX/SIMETH 30 ML UNIT-DOSE CUP PO PRN (16:12)
[2021-06-13] MEDS ORDERED: NICOTINE 10 MG CARTRIDGE (INHALER) IH PRN (16:12)
[2021-06-13] MEDS ORDERED: LOPERAMIDE HCL 2 MG CAPSULE PO PRN (16:12)
[2021-06-13] MEDS: hydrOXYzine PAMOATE 25 MG CAPSULE (FP) PO PRN (17:43)
[2021-06-13] MEDS: MELATONIN 5 MG TABLETS PO SCH (21:39)
[2021-06-13] MEDS: THIAMINE HCL 100 MG TABLET (FP) PO SCH (21:39)
[2021-06-14] MEDS: metFORMIN HCL 500 MG TABLET (FP) PO SCH (07:11)
[2021-06-14] MEDS: PRENATAL VITAMINS W/ FOLIC ACID TABLET (FP) PO SCH (09:44)
[2021-06-14] MEDS: METOPROLOL TARTRATE 25 MG TABLET (FP) PO SCH (09:44)
[2021-06-14] MEDS: amLODIPine BESYLATE 10 MG TABLET (FP) PO SCH (09:44)
[2021-06-14] MEDS: NICOTINE 7 MG/24 HOURS TOPICAL PATCH TD SCH (09:44)
[2021-06-14] MEDS: hydrOXYzine PAMOATE 25 MG CAPSULE (FP) PO PRN ×3 (09:45→21:01)
[2021-06-14] MEDS: THIAMINE HCL 100 MG TABLET (FP) PO SCH (21:00)
[2021-06-14] MEDS: MELATONIN 5 MG TABLETS PO SCH (21:00)
[2021-06-15] MEDS: metFORMIN HCL 500 MG TABLET (FP) PO SCH (07:06)
[2021-06-15] MEDS: METOPROLOL TARTRATE 25 MG TABLET (FP) PO SCH (10:43)
[2021-06-15] MEDS: PRENATAL VITAMINS W/ FOLIC ACID TABLET (FP) PO SCH (10:43)
[2021-06-15] MEDS: NICOTINE 7 MG/24 HOURS TOPICAL PATCH TD SCH (10:43)
[2021-06-15] MEDS: amLODIPine BESYLATE 10 MG TABLET (FP) PO SCH (10:43)
[2021-06-15] MEDS: hydrOXYzine PAMOATE 25 MG CAPSULE (FP) PO PRN (19:25)
[2021-06-15] MEDS: THIAMINE HCL 100 MG TABLET (FP) PO SCH (22:30)
[2021-06-15] MEDS: MELATONIN 5 MG TABLETS PO SCH (22:30)
[2021-06-16] MEDS: metFORMIN HCL 500 MG TABLET (FP) PO SCH (07:10)
[2021-06-16] MEDS: NICOTINE 7 MG/24 HOURS TOPICAL PATCH TD SCH (14:11)
[2021-06-16] MEDS: amLODIPine BESYLATE 10 MG TABLET (FP) PO SCH (14:53)
[2021-06-16] MEDS: PRENATAL VITAMINS W/ FOLIC ACID TABLET (FP) PO SCH (14:53)
[2021-06-16] MEDS: METOPROLOL TARTRATE 25 MG TABLET (FP) PO SCH (14:54)
[2021-06-16 18:12] LABS: HIV INTERPRETATION NEGATIVE (NEGATIVE)
[2021-06-16] MEDS: THIAMINE HCL 100 MG TABLET (FP) PO SCH (21:47)
[2021-06-16] MEDS: MELATONIN 5 MG TABLETS PO SCH (21:47)
[2021-06-17] MEDS: hydrOXYzine PAMOATE 25 MG CAPSULE (FP) PO PRN ×2 (05:42→10:30)
[2021-06-17 07:33] VITALS: TEMP 96.3
[2021-06-17] MEDS: metFORMIN HCL 500 MG TABLET (FP) PO SCH (08:02)
[2021-06-17] MEDS: NICOTINE 7 MG/24 HOURS TOPICAL PATCH TD SCH (10:29)
[2021-06-17] MEDS: amLODIPine BESYLATE 10 MG TABLET (FP) PO SCH (10:29)
[2021-06-17] MEDS: METOPROLOL TARTRATE 25 MG TABLET (FP) PO SCH (10:29)
[2021-06-17] MEDS: PRENATAL VITAMINS W/ FOLIC ACID TABLET (FP) PO SCH (10:29)
[2021-06-17 15:57] VITALS: BP 145/74; PULSE 75
[2021-06-17] MEDS: THIAMINE HCL 100 MG TABLET (FP) PO SCH (22:00)
[2021-06-17] MEDS: MELATONIN 5 MG TABLETS PO SCH (22:00)
[2021-06-18] MEDS: metFORMIN HCL 500 MG TABLET (FP) PO SCH (07:30)
[2021-06-18] MEDS: amLODIPine BESYLATE 10 MG TABLET (FP) PO SCH (09:21)
[2021-06-18] MEDS: NICOTINE 7 MG/24 HOURS TOPICAL PATCH TD SCH (09:21)
[2021-06-18] MEDS: PRENATAL VITAMINS W/ FOLIC ACID TABLET (FP) PO SCH (09:21)
[2021-06-18] MEDS: METOPROLOL TARTRATE 25 MG TABLET (FP) PO SCH (09:21)
== END 2021-06-18 09:30 | disposition home or self-care (01) | DRG 772 ==
LOC: YASAS 15:42 → Y3W 15:43
PROVIDERS: ADMIT Allergy & Immunology; ATTEND Allergy & Immunology
PROC: HZ42ZZZ Group Counseling for Substance Abuse Treatment, Cognitive-Behavioral (ICD-10-PCS; principal; 2021-06-13)
DX: F11.20 Opioid dependence, uncomplicated (principal); F10.20 Alcohol dependence, uncomplicated; F31.9 Bipolar disorder, unspecified; I10 Essential (primary) hypertension; E11.9 Type 2 diabetes mellitus without complications; Z79.84 Long term (current) use of oral hypoglycemic drugs; Z86.11 Personal history of tuberculosis; Z88.1 Allergy status to other antibiotic agents
CPT/HCPCS: 36415; 82962; 87389

== ENCOUNTER 2021-07-12 09:10 | Inpatient (IN) | payer OTHER ==
[2021-07-12] MEDS ORDERED: LORazepam 2 MG TABLET PO ONE (12:44)
[2021-07-12] MEDS ORDERED: ONDANSETRON *ODT* 4 MG TABLET SL PRN (12:44)
[2021-07-12] MEDS ORDERED: MAG HYDROX/AL HYDROX/SIMETH 30 ML UNIT-DOSE CUP PO PRN (12:44)
[2021-07-12] MEDS ORDERED: MAGNESIUM CITRATE 300 ML BOTTLE PO PRN (12:44)
[2021-07-12] MEDS ORDERED: LORazepam 1 MG TABLET PO PRN (12:44)
[2021-07-12] MEDS ORDERED: BISMUTH SUBSALICYLATE 524 MG/30 ML PO PRN (12:44)
[2021-07-12] MEDS ORDERED: cloNIDine HCL 0.1 MG TABLET PO PRN (12:44)
[2021-07-12] MEDS ORDERED: MENTHOL/PHENOL 1 EACH UD MM PRN (12:44)
[2021-07-12] MEDS ORDERED: ACETAMINOPHEN 325 MG TABLET (FP) PO PRN ×2 (12:44)
[2021-07-12] MEDS ORDERED: MAGNESIUM HYDROX 2400MG/30ML ORAL SUSPENSION 30 ML CUP PO PRN (12:44)
[2021-07-12] MEDS ORDERED: NICOTINE 10 MG CARTRIDGE (INHALER) IH PRN (12:44)
[2021-07-12] MEDS ORDERED: IBUPROFEN 400 MG TABLET (FP) PO PRN (12:44)
[2021-07-12] MEDS ORDERED: methaDONE HCL 10 MG TABLET (FOR DETOX USE ONLY) PO ONE ×2 (12:44→22:00)
[2021-07-12 13:24] VITALS: BMI 31.6
[2021-07-12] MEDS: PRENATAL VITAMINS W/ FOLIC ACID TABLET (FP) PO SCH (21:56)
[2021-07-12] MEDS: BACITRACIN 15 GM TUBE TOPICAL OINTMENT TP SCH ×2 (21:56→23:25)
[2021-07-12] MEDS: METOPROLOL TARTRATE 25 MG TABLET (FP) PO SCH (21:57)
[2021-07-12] MEDS: metFORMIN HCL 500 MG TABLET (FP) PO SCH (21:57)
[2021-07-12] MEDS: INSULIN SLIDING SCALE (NOVOLOG) 1 VIAL SQ SCH (21:57)
[2021-07-12] MEDS: LIDOCAINE 5% TOPICAL PATCH TP SCH (21:57)
[2021-07-12] MEDS: LORazepam 2 MG TABLET PO SCH (23:24)
[2021-07-12] MEDS: LIDOCAINE PATCH REMOVAL MC SCH (23:26)
[2021-07-12] MEDS: MELATONIN 5 MG TABLETS PO SCH (23:26)
[2021-07-12] MEDS: THIAMINE HCL 100 MG TABLET (FP) PO SCH (23:26)
[2021-07-13] MEDS: LORazepam 2 MG TABLET PO SCH ×5 (01:39→23:07)
[2021-07-13] MEDS: metFORMIN HCL 500 MG TABLET (FP) PO SCH (06:46)
[2021-07-13] MEDS: INSULIN SLIDING SCALE (NOVOLOG) 1 VIAL SQ SCH ×2 (08:02→16:37)
[2021-07-13] MEDS ORDERED: methaDONE HCL 10 MG TABLET (FOR DETOX USE ONLY) ONE (09:34)
[2021-07-13] MEDS: PRENATAL VITAMINS W/ FOLIC ACID TABLET (FP) PO SCH (10:16)
[2021-07-13] MEDS: LIDOCAINE 5% TOPICAL PATCH TP SCH (10:17)
[2021-07-13] MEDS: BACITRACIN 15 GM TUBE TOPICAL OINTMENT TP SCH ×2 (10:17→23:08)
[2021-07-13] MEDS: METOPROLOL TARTRATE 25 MG TABLET (FP) PO SCH (11:47)
[2021-07-13] MEDS: THIAMINE HCL 100 MG TABLET (FP) PO SCH (23:07)
[2021-07-13] MEDS: MELATONIN 5 MG TABLETS PO SCH (23:07)
[2021-07-13] MEDS: LIDOCAINE PATCH REMOVAL MC SCH (23:09)
[2021-07-14] MEDS: LORazepam 1 MG TABLET PO SCH ×4 (06:50→23:17)
[2021-07-14] MEDS: INSULIN SLIDING SCALE (NOVOLOG) 1 VIAL SQ SCH ×2 (06:52→18:04)
[2021-07-14] MEDS: metFORMIN HCL 500 MG TABLET (FP) PO SCH (06:52)
[2021-07-14] MEDS ORDERED: ALBUTEROL SO4 HFA INHALER IH PRN (08:20)
[2021-07-14] MEDS ORDERED: methaDONE HCL 10 MG TABLET (FOR DETOX USE ONLY) PO ONE (10:00)
[2021-07-14] MEDS: PRENATAL VITAMINS W/ FOLIC ACID TABLET (FP) PO SCH (10:53)
[2021-07-14] MEDS: METOPROLOL TARTRATE 25 MG TABLET (FP) PO SCH (10:53)
[2021-07-14] MEDS: LIDOCAINE 5% TOPICAL PATCH TP SCH (10:54)
[2021-07-14] MEDS: BACITRACIN 15 GM TUBE TOPICAL OINTMENT TP SCH ×2 (11:02→22:53)
[2021-07-14 12:09] LABS: ALBUMIN 2.3 g/dl (3.4-5.0); BLOOD UREA NITROGEN 11.1 mg/dL (7-18); CALCIUM 7.9 mg/dL (8.5-10.1)
[2021-07-14 12:16] LABS: CREATININE 0.9 mg/dL (0.55-1.3)
[2021-07-14 12:17] LABS: BILIRUBIN,TOTAL 0.2 mg/dL (0.2-1)
[2021-07-14 12:20] LABS: HEMATOCRIT 31.2 % (35.4-49); HEMOGLOBIN 10.3 GM/dL (11.7-16.9); MEAN CELL VOLUME 78.9 fl (80-96); MEAN PLT VOLUME 8.1 fl (7.5-11.1); PLATELET COUNT 294 10^3/uL (134-434); RBC 3.95 M/mm3 (4.00-5.60); WHITE BLOOD COUNT 8.3 K/mm3 (4.0-10.0)
[2021-07-14] MEDS ORDERED: LISINOPRIL 5 MG TABLET PO ONE (19:38)
[2021-07-14] MEDS: THIAMINE HCL 100 MG TABLET (FP) PO SCH (22:52)
[2021-07-14] MEDS: METHOCARBAMOL 500 MG TABLET PO PRN (22:52)
[2021-07-14] MEDS: MELATONIN 5 MG TABLETS PO SCH (22:52)
[2021-07-14] MEDS: LIDOCAINE PATCH REMOVAL MC SCH (22:57)
[2021-07-15] MEDS ORDERED: LORazepam 0.5 MG TABLET PO PRN
[2021-07-15] MEDS: LORazepam 0.5 MG TABLET PO SCH ×4 (07:08→22:49)
[2021-07-15] MEDS: INSULIN SLIDING SCALE (NOVOLOG) 1 VIAL SQ SCH ×2 (07:45→17:37)
[2021-07-15] MEDS: metFORMIN HCL 500 MG TABLET (FP) PO SCH (07:45)
[2021-07-15] MEDS ORDERED: methaDONE HCL 10 MG TABLET (FOR DETOX USE ONLY) ONE (09:42)
[2021-07-15] MEDS: BACITRACIN 15 GM TUBE TOPICAL OINTMENT TP SCH ×2 (10:46→22:52)
[2021-07-15] MEDS: PRENATAL VITAMINS W/ FOLIC ACID TABLET (FP) PO SCH (10:48)
[2021-07-15] MEDS: LIDOCAINE 5% TOPICAL PATCH TP SCH (10:49)
[2021-07-15] MEDS: METOPROLOL TARTRATE 25 MG TABLET (FP) PO SCH (11:38)
[2021-07-15 22:32] LABS: HIV INTERPRETATION NEGATIVE (NEGATIVE)
[2021-07-15] MEDS: THIAMINE HCL 100 MG TABLET (FP) PO SCH (22:48)
[2021-07-15] MEDS: MELATONIN 5 MG TABLETS PO SCH (22:48)
[2021-07-15] MEDS: LIDOCAINE PATCH REMOVAL MC SCH (22:52)
[2021-07-16] MEDS ORDERED: LORazepam 0.5 MG TABLET PO ONE (05:00)
[2021-07-16] MEDS: metFORMIN HCL 500 MG TABLET (FP) PO SCH (06:10)
[2021-07-16] MEDS: INSULIN SLIDING SCALE (NOVOLOG) 1 VIAL SQ SCH ×2 (06:10→17:10)
[2021-07-16] MEDS ORDERED: methaDONE HCL 10 MG TABLET (FOR DETOX USE ONLY) PO ONE (10:00)
[2021-07-16] MEDS: BACITRACIN 15 GM TUBE TOPICAL OINTMENT TP SCH ×2 (10:03→22:49)
[2021-07-16] MEDS: METHOCARBAMOL 500 MG TABLET PO PRN (10:04)
[2021-07-16] MEDS: METOPROLOL TARTRATE 25 MG TABLET (FP) PO SCH (10:04)
[2021-07-16] MEDS: PRENATAL VITAMINS W/ FOLIC ACID TABLET (FP) PO SCH (10:06)
[2021-07-16] MEDS: LIDOCAINE 5% TOPICAL PATCH TP SCH (10:07)
[2021-07-16] MEDS ORDERED: amLODIPine BESYLATE 10 MG TABLET (FP) PO SCH (14:15)
[2021-07-16] MEDS ORDERED: HYDROCHLOROTHIAZIDE 25 MG TABLET (FP) PO ONE (14:56)
[2021-07-16] MEDS ORDERED: LISINOPRIL 20 MG TABLET PO ONE (22:10)
[2021-07-16] MEDS: LIDOCAINE PATCH REMOVAL MC SCH (22:49)
[2021-07-16] MEDS: MELATONIN 5 MG TABLETS PO SCH (22:49)
[2021-07-16] MEDS: THIAMINE HCL 100 MG TABLET (FP) PO SCH (22:50)
[2021-07-17] MEDS: INSULIN SLIDING SCALE (NOVOLOG) 1 VIAL SQ SCH (06:32)
[2021-07-17] MEDS: metFORMIN HCL 500 MG TABLET (FP) PO SCH ×2 (06:33→08:06)
[2021-07-17 09:06] VITALS: BP 146/80; PULSE 89; TEMP 96.9
[2021-07-17] MEDS ORDERED: HYDROCHLOROTHIAZIDE 25 MG TABLET (FP) PO SCH (10:00)
[2021-07-17] MEDS: BACITRACIN 15 GM TUBE TOPICAL OINTMENT TP SCH (10:13)
[2021-07-17] MEDS: PRENATAL VITAMINS W/ FOLIC ACID TABLET (FP) PO SCH (10:14)
[2021-07-17] MEDS: LIDOCAINE 5% TOPICAL PATCH TP SCH (10:14)
[2021-07-17] MEDS: METOPROLOL TARTRATE 25 MG TABLET (FP) PO SCH (10:14)
== END 2021-07-17 11:08 | disposition home or self-care (01) | DRG 773 ==
LOC: YASAS 09:10 → Y3N 18:13
PROVIDERS: ADMIT Allergy & Immunology; ATTEND Allergy & Immunology
PROC: HZ2ZZZZ Detoxification Services for Substance Abuse Treatment (ICD-10-PCS; principal; 2021-07-12)
DX: F11.23 Opioid dependence with withdrawal (principal); F10.230 Alcohol dependence with withdrawal, uncomplicated; F14.20 Cocaine dependence, uncomplicated; F16.20 Hallucinogen dependence, uncomplicated; F17.210 Nicotine dependence, cigarettes, uncomplicated; I10 Essential (primary) hypertension; G62.9 Polyneuropathy, unspecified; J45.909 Unspecified asthma, uncomplicated; E11.9 Type 2 diabetes mellitus without complications; M54.50 Low back pain, unspecified; G89.29 Other chronic pain; E66.9 Obesity, unspecified; Z68.31 Body mass index [BMI] 31.0-31.9, adult; Z88.0 Allergy status to penicillin; Z86.59 Personal history of other mental and behavioral disorders; Z98.84 Bariatric surgery status; Z79.84 Long term (current) use of oral hypoglycemic drugs; Z96.653 Presence of artificial knee joint, bilateral; Z86.11 Personal history of tuberculosis; Z59.00 Homelessness unspecified
CPT/HCPCS: 36415; 80053; 82310; 82962; 85027; 86780; 87389; C9803; J0735; U0003; U0005

== ENCOUNTER 2021-07-17 11:08 | Inpatient (IN) | payer OTHER ==
[2021-07-17] MEDS ORDERED: P-EPHED 60MG/TRIPROLIDI 2.5MG TABLET PO PRN (11:13)
[2021-07-17] MEDS ORDERED: MAGNESIUM CITRATE 300 ML BOTTLE PO PRN (11:13)
[2021-07-17] MEDS ORDERED: IBUPROFEN 400 MG TABLET (FP) PO PRN ×2 (11:13→11:20)
[2021-07-17] MEDS ORDERED: MAG HYDROX/AL HYDROX/SIMETH 30 ML UNIT-DOSE CUP PO PRN (11:13)
[2021-07-17] MEDS ORDERED: MENTHOL/PHENOL 1 EACH UD MM PRN (11:13)
[2021-07-17] MEDS ORDERED: ACETAMINOPHEN 325 MG TABLET (FP) PO PRN (11:13)
[2021-07-17] MEDS ORDERED: LOPERAMIDE HCL 2 MG CAPSULE PO PRN (11:13)
[2021-07-17] MEDS ORDERED: MAGNESIUM HYDROX 2400MG/30ML ORAL SUSPENSION 30 ML CUP PO PRN (11:13)
[2021-07-17] MEDS ORDERED: ALBUTEROL SO4 HFA INHALER IH PRN (11:15)
[2021-07-17] MEDS ORDERED: HYDROCHLOROTHIAZIDE 25 MG TABLET (FP) PO ONE (11:23)
[2021-07-17] MEDS ORDERED: METOPROLOL TARTRATE 25 MG TABLET (FP) PO ONE (11:23)
[2021-07-17] MEDS: LIDOCAINE 5% TOPICAL PATCH TP SCH (12:23)
[2021-07-17] MEDS: METHOCARBAMOL 500 MG TABLET PO SCH ×3 (13:44→22:53)
[2021-07-17] MEDS ORDERED: HALOPERIDOL 5 MG TABLET PO ONE (14:18)
[2021-07-17] MEDS: BENZTROPINE MESYLATE 1 MG TABLET PO PRN (14:37)
[2021-07-17] MEDS: INSULIN SLIDING SCALE (NOVOLOG) 1 VIAL SQ SCH (16:46)
[2021-07-17] MEDS: hydrOXYzine PAMOATE 25 MG CAPSULE (FP) PO PRN (18:40)
[2021-07-17] MEDS ORDERED: SUVOREXANT 10 MG TABLET PO PRN (22:00)
[2021-07-17] MEDS ORDERED: MELATONIN 5 MG TABLETS PO SCH (22:00)
[2021-07-17] MEDS: BACITRACIN 0.9 GM PACKET TP SCH (22:53)
[2021-07-17] MEDS: THIAMINE HCL 100 MG TABLET (FP) PO SCH (22:53)
[2021-07-17] MEDS: LIDOCAINE PATCH REMOVAL MC SCH (22:54)
[2021-07-18] MEDS: metFORMIN HCL 500 MG TABLET (FP) PO SCH (06:29)
[2021-07-18] MEDS: INSULIN SLIDING SCALE (NOVOLOG) 1 VIAL SQ SCH ×2 (06:29→17:21)
[2021-07-18] MEDS: METHOCARBAMOL 500 MG TABLET PO SCH ×3 (10:11→17:20)
[2021-07-18] MEDS: BACITRACIN 0.9 GM PACKET TP SCH (10:11)
[2021-07-18] MEDS: LIDOCAINE 5% TOPICAL PATCH TP SCH (10:12)
[2021-07-18] MEDS: PRENATAL VITAMINS W/ FOLIC ACID TABLET (FP) PO SCH (10:12)
[2021-07-18] MEDS: METOPROLOL TARTRATE 25 MG TABLET (FP) PO SCH (10:12)
[2021-07-18] MEDS: HYDROCHLOROTHIAZIDE 25 MG TABLET (FP) PO SCH (10:12)
[2021-07-18 12:50] LABS: HIV INTERPRETATION NEGATIVE (NEGATIVE)
[2021-07-18] MEDS: hydrOXYzine PAMOATE 25 MG CAPSULE (FP) PO PRN ×2 (14:49→19:38)
[2021-07-19] MEDS: THIAMINE HCL 100 MG TABLET (FP) PO SCH ×2 (00:03→22:11)
[2021-07-19] MEDS: LIDOCAINE PATCH REMOVAL MC SCH ×2 (00:03→22:11)
[2021-07-19] MEDS: METHOCARBAMOL 500 MG TABLET PO SCH ×5 (00:03→22:11)
[2021-07-19] MEDS: BACITRACIN 0.9 GM PACKET TP SCH ×3 (00:03→22:11)
[2021-07-19] MEDS: metFORMIN HCL 500 MG TABLET (FP) PO SCH (06:30)
[2021-07-19] MEDS: INSULIN SLIDING SCALE (NOVOLOG) 1 VIAL SQ SCH ×2 (07:04→16:43)
[2021-07-19] MEDS: METOPROLOL TARTRATE 25 MG TABLET (FP) PO SCH (09:53)
[2021-07-19] MEDS: HYDROCHLOROTHIAZIDE 25 MG TABLET (FP) PO SCH (09:53)
[2021-07-19] MEDS: LIDOCAINE 5% TOPICAL PATCH TP SCH (09:53)
[2021-07-19] MEDS: PRENATAL VITAMINS W/ FOLIC ACID TABLET (FP) PO SCH (09:53)
[2021-07-19] MEDS: HALOPERIDOL 5 MG TABLET PO PRN (09:55)
[2021-07-19] MEDS: BENZTROPINE MESYLATE 1 MG TABLET PO PRN (09:55)
[2021-07-19] MEDS: hydrOXYzine PAMOATE 25 MG CAPSULE (FP) PO PRN (16:43)
[2021-07-20] MEDS: guaiFENesin 200 MG/10 ML 10 ML UNIT-DOSE CUPS PO PRN ×2 (01:48→19:50)
[2021-07-20] MEDS: metFORMIN HCL 500 MG TABLET (FP) PO SCH (06:39)
[2021-07-20] MEDS: INSULIN SLIDING SCALE (NOVOLOG) 1 VIAL SQ SCH ×2 (06:41→16:42)
[2021-07-20] MEDS ORDERED: PT OWN MED DRAWER 7, Y5N ONE (08:47)
[2021-07-20] MEDS: BACITRACIN 0.9 GM PACKET TP SCH ×2 (09:57→23:49)
[2021-07-20] MEDS: METHOCARBAMOL 500 MG TABLET PO SCH ×4 (09:57→23:50)
[2021-07-20] MEDS: PRENATAL VITAMINS W/ FOLIC ACID TABLET (FP) PO SCH (09:57)
[2021-07-20] MEDS: METOPROLOL TARTRATE 25 MG TABLET (FP) PO SCH (09:57)
[2021-07-20] MEDS: HYDROCHLOROTHIAZIDE 25 MG TABLET (FP) PO SCH (09:57)
[2021-07-20] MEDS: LIDOCAINE 5% TOPICAL PATCH TP SCH (09:58)
[2021-07-20] MEDS: HALOPERIDOL 5 MG TABLET PO PRN (10:00)
[2021-07-20] MEDS: hydrOXYzine PAMOATE 25 MG CAPSULE (FP) PO PRN (14:48)
[2021-07-20] MEDS ORDERED: SUVOREXANT 10 MG TABLET PO PRN (22:00)
[2021-07-20] MEDS: LIDOCAINE PATCH REMOVAL MC SCH (23:50)
[2021-07-20] MEDS: THIAMINE HCL 100 MG TABLET (FP) PO SCH (23:50)
[2021-07-21] MEDS: INSULIN SLIDING SCALE (NOVOLOG) 1 VIAL SQ SCH ×2 (06:01→16:27)
[2021-07-21] MEDS: metFORMIN HCL 500 MG TABLET (FP) PO SCH (06:01)
[2021-07-21] MEDS ORDERED: COLLOIDAL OATMEAL 1 BAR EACH TP PRN (09:14)
[2021-07-21] MEDS: METHOCARBAMOL 500 MG TABLET PO SCH ×4 (09:50→23:58)
[2021-07-21] MEDS: METOPROLOL TARTRATE 25 MG TABLET (FP) PO SCH (09:50)
[2021-07-21] MEDS: HALOPERIDOL 5 MG TABLET PO PRN (09:50)
[2021-07-21] MEDS: LIDOCAINE 5% TOPICAL PATCH TP SCH (09:50)
[2021-07-21] MEDS: HYDROCHLOROTHIAZIDE 25 MG TABLET (FP) PO SCH (09:50)
[2021-07-21] MEDS: PRENATAL VITAMINS W/ FOLIC ACID TABLET (FP) PO SCH (09:50)
[2021-07-21] MEDS: BACITRACIN 0.9 GM PACKET TP SCH ×2 (09:50→23:57)
[2021-07-21] MEDS: SENNOSIDES/DOCUSATE COMBO (SENNA PLUS) TABLET (UD) PO SCH ×2 (09:51→23:58)
[2021-07-21] MEDS: CLOTRIMAZOLE/BETAMET DIPROP 15 GM TUBE TP SCH ×2 (09:51→23:57)
[2021-07-21] MEDS: guaiFENesin 200 MG/10 ML 10 ML UNIT-DOSE CUPS PO PRN (09:52)
[2021-07-21] MEDS: LIDOCAINE PATCH REMOVAL MC SCH (23:57)
[2021-07-21] MEDS: THIAMINE HCL 100 MG TABLET (FP) PO SCH (23:58)
[2021-07-22] MEDS: metFORMIN HCL 500 MG TABLET (FP) PO SCH (06:10)
[2021-07-22] MEDS: INSULIN SLIDING SCALE (NOVOLOG) 1 VIAL SQ SCH (06:10)
[2021-07-22 07:00] VITALS: BP 138/85; PULSE 83; TEMP 98.1
[2021-07-22] MEDS: HYDROCHLOROTHIAZIDE 25 MG TABLET (FP) PO SCH (10:05)
[2021-07-22] MEDS: PRENATAL VITAMINS W/ FOLIC ACID TABLET (FP) PO SCH (10:05)
[2021-07-22] MEDS: BACITRACIN 0.9 GM PACKET TP SCH (10:05)
[2021-07-22] MEDS: SENNOSIDES/DOCUSATE COMBO (SENNA PLUS) TABLET (UD) PO SCH (10:05)
[2021-07-22] MEDS: METHOCARBAMOL 500 MG TABLET PO SCH (10:05)
[2021-07-22 10:06] LABS: BASO % 0.5 % (0-2.0); EOS % 0.6 % (0-4.5); HEMATOCRIT 33.3 % (35.4-49); HEMOGLOBIN 10.8 GM/dL (11.7-16.9); LYMPH % 18.6 % (8-40); MCH 25.6 pg (25.7-33.7); MCHC 32.5 g/dl (32.0-35.9); MEAN CELL VOLUME 78.9 fl (80-96); MEAN PLT VOLUME 7.8 fl (7.5-11.1); MONO % 4.9 % (3.8-10.2); NEUT % 75.4 % (42.8-82.8); PLATELET COUNT 419 10^3/uL (134-434); RBC 4.22 M/mm3 (4.00-5.60); RDW 19.8 % (11.9-15.9); WHITE BLOOD COUNT 8.9 K/mm3 (4.0-10.0)
[2021-07-22] MEDS: METOPROLOL TARTRATE 25 MG TABLET (FP) PO SCH (10:06)
[2021-07-22] MEDS: CLOTRIMAZOLE/BETAMET DIPROP 15 GM TUBE TP SCH (10:06)
[2021-07-22] MEDS: LIDOCAINE 5% TOPICAL PATCH TP SCH (10:07)
== END 2021-07-22 10:35 | disposition left against medical advice (07) | DRG 770 ==
LOC: YASAS 11:08 → Y3W 11:09
PROVIDERS: ADMIT Allergy & Immunology; ATTEND Allergy & Immunology
PROC: HZ42ZZZ Group Counseling for Substance Abuse Treatment, Cognitive-Behavioral (ICD-10-PCS; principal; 2021-07-17)
DX: F11.20 Opioid dependence, uncomplicated (principal); F10.20 Alcohol dependence, uncomplicated; F14.20 Cocaine dependence, uncomplicated; F16.20 Hallucinogen dependence, uncomplicated; F12.20 Cannabis dependence, uncomplicated; F17.210 Nicotine dependence, cigarettes, uncomplicated; F19.24 Other psychoactive substance dependence with psychoactive substance-induced mood disorder; F19.282 Other psychoactive substance dependence with psychoactive substance-induced sleep disorder; F43.10 Post-traumatic stress disorder, unspecified; F25.9 Schizoaffective disorder, unspecified; I10 Essential (primary) hypertension; D64.9 Anemia, unspecified; L98.9 Disorder of the skin and subcutaneous tissue, unspecified; E11.9 Type 2 diabetes mellitus without complications; J44.9 Chronic obstructive pulmonary disease, unspecified; G62.9 Polyneuropathy, unspecified; M17.0 Bilateral primary osteoarthritis of knee; M54.50 Low back pain, unspecified; G89.29 Other chronic pain; E66.9 Obesity, unspecified; Z68.32 Body mass index [BMI] 32.0-32.9, adult; Z79.84 Long term (current) use of oral hypoglycemic drugs; Z62.810 Personal history of physical and sexual abuse in childhood; Z86.19 Personal history of other infectious and parasitic diseases; Z86.11 Personal history of tuberculosis; Z96.653 Presence of artificial knee joint, bilateral; Z98.84 Bariatric surgery status; Z56.0 Unemployment, unspecified; Z59.00 Homelessness unspecified
CPT/HCPCS: 36415; 82962; 85025; 87389